=== PATIENT | female | born 1995 | race Two or more races ===

== ENCOUNTER 2017-03-31 23:59 | Inpatient (IN) | payer SELFPAY ==
[~2017-03-31] VITALS: Ht 154.9 cm; Wt 68.5 kg
[2017-04-01] MEDS ORDERED: ONDANSETRON PF 4 MG/2 ML VIAL. IV PRN ×2 (00:15→15:15)
[2017-04-01] MEDS ORDERED: MAG HYDROX/ALUMINUM HYD/SIMETH 30 ML ORAL.SUSP PO PRN (00:15)
[2017-04-01] MEDS ORDERED: CITRIC ACID/SODIUM CITRATE 30 ML SOLUTION. PO PRN (00:15)
[2017-04-01] MEDS ORDERED: OXYTOCIN 30 UNIT/500 ML PREMIX 500 ML IV PRN ×2 (00:15)
[2017-04-01] MEDS ORDERED: IBUPROFEN 600 MG TABLET. PO PRN (00:15)
[2017-04-01] MEDS ORDERED: TERBUTALINE 1 MG/ML VIAL. SQ PRN (00:15)
[2017-04-01] MEDS ORDERED: LIDOCAINE 1% PF 30 ML VIAL. INJ PRN (00:15)
[2017-04-01] MEDS ORDERED: ACETAMINOPHEN 325 MG TABLET. PO PRN (00:15)
[2017-04-01] MEDS ORDERED: 0.9 % SODIUM CHLORIDE 10 ML DISP.SYRIN. IV PRN (00:15)
[2017-04-01] MEDS ORDERED: BUTORPHANOL 2 MG/ML VIAL. IV PRN ×2 (00:15)
[2017-04-01 01:00] LABS: HEMATOCRIT 36.5 % (36.0-47.0); HEMOGLOBIN 12.3 g/dL (12.0-15.5); RED BLOOD COUNT 3.93 x10^6/uL (3.50-5.40); RED CELL DISTRIBUTION WIDTH 13.9 % (11.5-14.5); WHITE BLOOD COUNT 10.2 x10^3/uL (4.0-11.0)
[2017-04-01] MEDS ORDERED: OXYTOCIN in NORMAL SALINE PREMIX 30 UNIT/500 ML BAG. IV ONE (01:00)
[2017-04-01 01:32] LABS: BILIRUBIN,URINE NEGATIVE (NEG); GLUCOSE,URINE NEGATIVE (NEG); NITRITE,URINE NEGATIVE (NEG); PROTEIN,URINE NEGATIVE (NEG-TRACE); UROBILINOGEN,URINE 0.2 mg/dL (0.2 mg/dL)
[2017-04-01 01:42] LABS: BACTERIA,URINE MODERATE /HPF (0-FEW); RBC,URINE 0 /HPF (0-2); SQUAMOUS EPITHELIAL CELL,UR MANY /LPF
[2017-04-01] MEDS: IV RINGERS,LACTATED 1000ML 1,000 ML IV SCH ×2 (11:14→16:12)
[2017-04-01] MEDS ORDERED: fentaNYL PF VIAL 100 MCG/2 ML VIAL IV PRN (12:15)
[2017-04-01] MEDS ORDERED: L&D EPIDURAL CASSETTE 100 ML EP ONE (14:31)
[2017-04-01] MEDS ORDERED: ROPIVacaine 0.2% IN 0.9%NACL PF 40 MG/20 ML DISP.SYRIN. ONE (14:31)
[2017-04-01] MEDS ORDERED: IV RINGERS,LACTATED 1000ML 1,000 ML IV SCH (15:03)
[2017-04-01] MEDS ORDERED: L&D EPIDURAL CASSETTE 100 ML EP PRN (15:15)
[2017-04-01] MEDS ORDERED: ROPIVacaine 0.2% IN 0.9%NACL PF 40 MG/20 ML DISP.SYRIN. EPI PRN (15:15)
[2017-04-01] MEDS ORDERED: fentaNYL PF VIAL 100 MCG/2 ML VIAL EPI PRN (15:15)
[2017-04-01] MEDS ORDERED: ePHEDrine PF IN SALINE 50 MG/5 ML DISP.SYRIN IV PRN (15:15)
[2017-04-01] MEDS ORDERED: NALOXONE 0.4 MG/ML VIAL. IV PRN (15:15)
--- NOTE | 2017-04-01 16:54 | PDOC ---
VAGINAL DELIVERY DATE DATE: 04/01/17 TIME: 16:46 : 2 Para: 1 EDC: Apr 08, 2017 VAGINAL DELIVERY: VTX VACCUM ASSISTED: No PLACENTA: Spontaneous SEX: Female WEIGHT 6# Nuchal Cord: No Amniotic Fluid: Clear EPISIOTOMY: No EXTENSION: No EBL 300cc COMPLICATIONS none CONDITION Stable Signs of Intrauterine Infectio: None Shoulder Dystocia: No DIAGNOSIS TIUP del; Problems: MARA JEAN BAPTISTE MD Apr 01, 2017 16:54
--- NOTE | 2017-04-01 16:57 | PDOC1 ---
OB - History Hx of Present Care: Good Care Ultrasounds: Normal mid trimester US Obstetrical Complications: None Medical Complications: None Past Family/Social History * Past Medical, Surgical, Family and Obstetric Histories reviewed from chart. Blood Type: O+ Rubella: Immune RPR/VDRL: Negative GBS Status: Negative HBsAG: Negative OB - Chief Complaint & HPI Date of Admission: Date of Admission: Mar 31, 2017 at 23:59 Chief Complaint/History : 2 Para: 1 EDC: Apr 08, 2017 Reason for admission: induction of labor Indication for induction: other Admission Nurse Assessment Rev: Yes Problems: OB - Admission Exam Physical Exam Vitals: VS - Last 72 Hours, by Label Date Time Temp Pulse Resp B/P (MAP) Pulse Ox O2 Delivery O2 Flow Rate FiO2 04/01/17 15:14 18 99 04/01/17 13:00 20 Room Air 04/01/17 12:22 20 Room Air Heart: Regular Rate Lungs: Clear, Equal Extremities: Normal Pulses, No tenderness or swelling Reflexes: Normal Cervical Dilatation: 2cm Effacement: 25% Station: Ballotable Amniotic Fluid: Clear Heart Rate: Normal Accelerations: Accelerations Present Contractions on Admission: 6-10 Minutes Apart Intensity: Mild Assessment/Plan Assessment/Plan TIUP Induction ACSVD Problems: MARA JEAN BAPTISTE MD Apr 01, 2017 16:57
[2017-04-01 21:00] VITALS: BP 98/60
[2017-04-02] VITALS: BP 113/60
[2017-04-02 04:00] VITALS: BP 95/62
[2017-04-02 11:01] VITALS: BP 110/64
--- NOTE | 2017-04-02 14:49 | PDOC ---
OB Progress Note Date of Service 04/02/17 Time of Evaluation 1445 Notes Pt. feeling well. Pain controlled. Lochia minimal. Breast feeding. Lab Laboratory Tests Test 04/01/17 00:50 04/01/17 01:25 White Blood Count 10.2 x10^3/uL (4.0-11.0) Red Blood Count 3.93 x10^6/uL (3.50-5.40) Hemoglobin 12.3 g/dL (12.0-15.5) Hematocrit 36.5 % (36.0-47.0) Mean Corpuscular Volume 93 fL (79-100) Mean Corpuscular Hemoglobin 31 pg (25-35) Mean Corpuscular Hemoglobin Concent 34 g/dL (31-37) Red Cell Distribution Width 13.9 % (11.5-14.5) Platelet Count 229 x10^3/uL (140-400) Urine Collection Type Unknown Urine Color Yellow Urine Clarity Cloudy Urine pH 7.0 Urine Specific [place] 1.015 Urine Protein Negative mg/dL (NEG-TRACE) Urine Glucose (UA) Negative mg/dL (NEG) Urine Ketones (Stick) Negative mg/dL (NEG) Urine Blood Negative (NEG) Urine Nitrite Negative (NEG) Urine Bilirubin Negative (NEG) Urine Urobilinogen Dipstick 0.2 mg/dL (0.2 mg/dL) Urine Leukocyte Esterase Moderate (NEG) Urine RBC 0 /HPF (0-2) Urine WBC 5-10 /HPF (0-4) Urine Squamous Epithelial Cells Many /LPF Urine Bacteria Moderate /HPF (0-FEW) Urine Mucus Slight /LPF Medications Current Medications Sodium Chloride (Normal Saline Flush) 3 ml QSHIFT PRN IV AFTER MEDS AND BLOOD DRAWS; Start 04/01/17 at 00:15 Ringer's Solution 1,000 ml @ 125 mls/hr Q8H IV Last administered on 04/01/17t 16:12; Start 04/01/17 at 00:09 Butorphanol Tartrate (Stadol) 1 mg PRN Q1HR PRN IV mild to moderate labor pain ; Start 04/01/17 at 00:15 Butorphanol Tartrate (Stadol) 2 mg PRN Q1HR PRN IV Severe labor pain; Start at 00:15 Acetaminophen (Tylenol) 650 mg PRN Q6HRS PRN PO MILD PAIN / TEMP; Start at 00:15 Ondansetron HCl (Zofran) 4 mg PRN Q4HRS PRN IV NAUSEA/VOMITING; Start 04/01/17 at 00:15 Al Hydroxide/Mg Hydroxide (Mylanta Plus Xs) 30 ml PRN Q4HRS PRN PO HEARTBURN / GAS; Start 04/01/17 at 00:15 Citric Acid/ Sodium Citrate (Bicitra) 30 ml 1X PRN PRN PO DYSPEPSIA; Start at 00:15; Stop 04/02/17 at 00:14; Status DC Terbutaline Sulfate (Brethine) 0.25 mg 1X PRN PRN SQ SEE COMMENTS; Start at 00:15; Stop 04/02/17 at 00:14; Status DC Lidocaine HCl 30 ml 1X PRN PRN INJ SEE COMMENTS; Start 04/01/17 at 00:15; Stop 04/03/17 at 00:14 Oxytocin/Sodium Chloride 500 ml @ 0 mls/hr CONT PRN IV SEE I/O RECORD; Start at 00:15 Oxytocin/Sodium Chloride 500 ml @ 0 mls/hr CONT PRN PRN IV Post delivery bleeding; Start 04/01/17 at 00:15 Ibuprofen (Motrin) 600 mg PRN Q6HRS PRN PO PAIN Last administered on 04/02/17 00:34; Start 04/01/17 at 00:15 Oxytocin/Sodium Chloride (Oxytocin Premix Infusion) 30 unit STK-MED ONCE IV ; Start 04/01/17 at 01:00; Stop 04/01/17 at 12:06; Status DC Fentanyl Citrate (Fentanyl 2ml Vial) 100 mcg PRN Q20MIN PRN IV Labor pain Last administered on 04/01/17 12:22; Start 04/01/17 at 12:15 Ropivacaine/ Fentanyl/NS 100 ml @ As Directed STK-MED ONCE EP ; Start 04/01/17 at 14:31; Stop 04/01/17 at 14:32; Status DC Ropivacaine 40 mg STK-MED ONCE .ROUTE ; Start 04/01/17 at 14:31; Stop 04/01/17 at 14:32; Status DC Ringer's Solution 1,000 ml @ 1,000 mls/hr Q1H IV ; Start 04/01/17 at 15:03; Stop 04/01/17 at 16:02; Status DC Ephedrine Sulfate 10 mg PRN Q2MIN PRN IV IF SBP<90; Start 04/01/17 at 15:15 Naloxone HCl (Narcan) 0.4 mg PRN Q1MIN PRN IV SEE COMMENTS; Start 04/01/17 at 15:15 Fentanyl Citrate (Fentanyl 2ml Vial) 100 mcg PRN 1X PRN EPI FOR ANESTHESIA; Start 04/01/17 at 15:15; Stop 04/02/17 at 15:14 Ropivacaine/ Fentanyl/NS 100 ml @ 14 mls/hr CONT PRN EP PAIN Last administered on 04/01/17 15:14; Start 04/01/17 at 15:15 Ondansetron HCl (Zofran) 4 mg PRN Q6HRS PRN IV NAUSEA/VOMITING; Start 04/01/17 at 15:15 Ropivacaine 40 mg PRN 1X PRN EPI SEE COMMENTS Last administered on 04/01/17 15 :11; Start 04/01/17 at 15:15; Stop 04/02/17 at 15:14 Exam Abd: soft, non tender, fundus firm Assessment PPD#1 s/p Plan of Care: Continue current Tx, Mgmt SHELLI XIAO Jr, MD Apr 02, 2017 14:49
[2017-04-02 16:21] VITALS: BP 105/66
[2017-04-02 20:57] VITALS: BP 92/54
[2017-04-03 05:47] VITALS: BP 101/64
[2017-04-03 11:18] VITALS: BP 93/54
[2017-04-03 17:24] VITALS: BP 108/62
[2017-04-03 22:11] LABS: RPR REFLEX Non Reactive (Non Reactive)
== END 2017-04-03 18:33 | disposition home or self-care (01) | DRG 775 ==
LOC: 3 SO LND 23:59 → 3 NORTH 04-01 21:11
PROVIDERS: ADMIT Specialist; ATTEND Specialist
PROC: 10E0XZZ Delivery of Products of Conception, External Approach (ICD-10-PCS; principal; 2017-04-01)
DX: O80 Encounter for full-term uncomplicated delivery (principal); Z37.0 Single live birth; Z3A.00 Weeks of gestation of pregnancy not specified
CPT/HCPCS: 36415; 81001; 85027; 86593; 86850; 86900; 86901; 87086; J2590; J2795; J3010; J7120